=== PATIENT | female | born 1940 | race African-American/Black ===

== ENCOUNTER 2019-07-29 07:30 | Inpatient (IN) | payer MEDICARE, BC ==
[2019-07-22 11:55] LABS: ALBUMIN 3.6 G/DL (3.4-5.0); ALKALINE PHOSPHATASE 93 IU/L (46-116); BLOOD UREA NITROGEN 15 MG/DL (7-18); BUN/CREATININE RATIO 16.7 (6.6-38.0); CALCIUM 9.1 MG/DL (8.5-10.1); CHLORIDE 106 MMOL/L (99-107); PRE OP ALT 16 U/L (30-65); PRE OP ANION GAP 8 (8-16); PRE OP AST 24 U/L (10-37); PRE OP BILIRUB, TOTAL 0.3 MG/DL (0.0-1.0); PRE OP GLUCOSE 86 MG/DL (70-104); PRE OP SODIUM 142 MMOL/L (135-145); TOTAL CARBON DIOXIDE 28.2 MMOL/L (24-32); TOTAL PROTEIN 7.1 G/DL (6.4-8.2); eGFR 73 ML/MIN
[2019-07-22 11:58] LABS: BASOPHILS # (AUTO) 0.1 X10'3 (0-0.2); BASOPHILS % (AUTO) 1.3 % (0-1); EOSINOPHILS # (AUTO) 0.1 X10'3 (0-0.9); EOSINOPHILS % (AUTO) 1.9 % (0-6); LYMPHOCYTES # (AUTO) 1.3 X10'3 (1.1-4.8); LYMPHOCYTES % (AUTO) 31.2 % (21-51); MEAN CORPUSCULAR HEMOGLOBIN 31.2 PG (27.0-31.0); MEAN CORPUSCULAR HGB CONC 33.8 g/dL (33.0-36.5); MEAN PLATELET VOLUME 7.2 FL (7.4-10.4); MONOCYTES # (AUTO) 0.3 X10'3 (0-0.9); MONOCYTES % (AUTO) 7.8 % (2-12); NEUTROPHILS # (AUTO) 2.4 X10'3 (1.8-7.7); NEUTROPHILS % (AUTO) 57.8 % (42-75); PRE OP HEMATOCRIT 35.6 % (35.0-45.0); PRE OP PLATELET COUNT 413 X10'3 (140-440); RED BLOOD COUNT 3.86 X10'6 (4.20-5.60); RED CELL DISTRIBUTION WIDTH 13.5 % (11.5-14.5)
[~2019-07-29] VITALS: Ht 162.6 cm; Wt 69.4 kg
[2019-07-29] VITALS (28 sets, daily range): BP systolic 122–150; BP diastolic 44–81
[2019-07-29] MEDS: potassium cl 20mEq in 1/2 NS 1,000 ML IV SCH ×3 (06:47→22:47)
[~2019-07-29 07:30] MED LIST: ACET-812 PO; DUTA0.5C16 PO; ENAL20TA PO; GABA-532 PO; HYDROcodone/acetaminophen 10/325mg tab PO PRN; HYDROmorphone 1 mg/ml syringe IV PRN; HYDROmorphone inj. 0.5 MG/0.5 ML DISP.SYRIN IV PRN; MELO-100 PO; MULT-271 PO; NIFE-58 PO; TRAM50TA2 PO; VANCOMYCIN INJ 1000 MG in NORMAL SALINE 250ml IV.SOLN IV ONE; acetaminophen 325mg tablet PO ONE; acetaminophen 325mg tablet PO PRN; bisacodyl 10mg suppository rectal RC PRN; cefazolin/dext.iso 2gm/100ml 100 ML IV ONE; celeCOXIB 100mg capsule PO ONE; diphenhydrAMINE 25mg capsule PO PRN; famotidine 20mg tablet PO ONE; gabapentin 300mg capsule PO ONE; magnesium hydroxide 30ml (MOM) UD suspension PO PRN; metoclopramide 5 mg/ml inj IV ONE; oxyCODONE SR 10mg (sust. release) tab -2 tabs (20mg) PO ONE; ringers solution, lacted 1,000 ML IV SCH; tranexamic acid inj. 1,000 MG in normal saline 100 ML IV ONE
[2019-07-29] MEDS ORDERED: vancomycin/NS 1 GM ADD-VANTAGE 250 ML IV SCH ×2 (08:00→21:00)
[2019-07-29] MEDS ORDERED: ceFAZolin 1GM/D5W- ADD-VANTAGE 50 ML IV SCH (08:00)
[2019-07-29] MEDS: ascorbic acid 500mg tablet PO SCH ×2 (08:00→21:39)
[2019-07-29] MEDS: multivitamins, therapeutics tablet PO SCH (08:00)
[2019-07-29] MEDS: gabapentin 300mg capsule PO SCH ×2 (08:00→21:39)
[2019-07-29] MEDS: NIFEdipine XL 30mg tablet PO SCH (08:00)
[2019-07-29] MEDS: dutasteride 0.5 MG capsule PO SCH (08:00)
[2019-07-29] MEDS: aspirin 325mg tablet PO SCH (08:30)
[2019-07-29] MEDS ORDERED: ringers solution, lacted 1,000 ML IV SCH (10:56)
[2019-07-29] MEDS ORDERED: ketorolac trometh. 30mg/ml inj. ONE ×2 (10:57→11:10)
[2019-07-29] MEDS ORDERED: ROPIVAcaine 0.5% (5mg/ml) 30ml vial ONE ×2 (10:58→11:10)
[2019-07-29] MEDS ORDERED: vancomycin 1,000mg inj ONE ×2 (10:58→11:10)
[2019-07-29] MEDS ORDERED: cloNIDine hcl/PF 100mcg/ml inj ONE ×2 (10:58→11:10)
[2019-07-29] MEDS ORDERED: epiNEPHrine 1 mg/ml inj ONE ×2 (10:58→11:10)
[2019-07-29] MEDS ORDERED: tetracaine 1% (10mg/ml) pres. free inj. ONE (10:59)
[2019-07-29] MEDS ORDERED: hydrALAZINE 20mg/ml inj. IV PRN (11:00)
[2019-07-29] MEDS ORDERED: labetalol 20mg/4ml (5mg/ml) syringe IV PRN (11:00)
[2019-07-29] MEDS ORDERED: fentaNYL/PF 50MCG/1 ML 2ML syringe IV PRN ×2 (11:00)
[2019-07-29] MEDS ORDERED: morphine 4 MG/ML inj SYRINge IV PRN ×2 (11:00)
[2019-07-29] MEDS ORDERED: ondansetron/PF 4mg/2ml inj IV PRN (11:00)
[2019-07-29] MEDS ORDERED: fentaNYL/PF 50MCG/1 ML 2ML syringe ONE (12:34)
[2019-07-29] MEDS ORDERED: MIDAZolam 5mg/5ml vial ONE (12:34)
--- NOTE | 2019-07-29 14:03 | NUR ---
Received from OR via BED, accompanied by Anesthesiologist DR LIN and report given by Anesthesiologist. PT DROWSY, DENIES PAIN, RIGHT HIP W/GAUZE THONG CDI, LEG BRACE IN PLACE, LESVIA DRAIN W/GREEN LIGHT ILLUMINATION, GARCIA CATHETER TO GRAVITY DRAINAGE W/YELLOW URINE IN TUBING. Addendum: 07/29/19 at 1507 by Cinthya Devine RN Amended: Links added.
--- NOTE | 2019-07-29 16:53 | NUR ---
Report called to receiving nurse. Transferred via BED, 1 BAG AND 1 DUFFLE BAG OF Belongings SENT TO ROOM 4011B W/PT, BLL, CALL LIGHT GIVEN, SIDE RAILS UP X 2, PT ATTACHED TO VS MACHINE, RECEIVING NOTIFIED OF PTS ARRIVAL. Special Issues communicated to receiving nurse. YES. Addendum: 07/29/19 at 1712 by Cinthya Devine RN Amended: Links added.
[2019-07-29] MEDS ORDERED: tranexamic acid inj. 700 MG in normal saline 100ml IV soln 100 ML IV ONE (17:00)
--- NOTE | 2019-07-29 19:06 | NUR ---
CAN YOU RETIME THE VANCOMYCIN, PLEASE? PT DIDNT COME BACK FROM SURGERY TIL 1730.
--- NOTE | 2019-07-29 19:55 | NUR ---
i can't pull out vanco for tonight dose. i'm not sure its pharmacy mix or stocked. thank you.
[2019-07-29] MEDS: ceFAZolin 1GM/D5W- ADD-VANTAGE 50 ML IV SCH (20:03)
[2019-07-29] MEDS: ondansetron/PF 4mg/2ml inj IV PRN (20:07)
[2019-07-29] MEDS ORDERED: sennosides 8.6mg tablet PO SCH (21:00)
[2019-07-30] MEDS: HYDROcodone/acetaminophen 10/325mg tab PO PRN ×4 (00:19→15:37)
[2019-07-30 02:00] VITALS: BP 115/44
[2019-07-30] MEDS: ceFAZolin 1GM/D5W- ADD-VANTAGE 50 ML IV SCH (03:09)
[2019-07-30 06:00] VITALS: BP 120/54
[2019-07-30 06:07] LABS: BASOPHILS % (AUTO) 0.7 % (0-1); EOSINOPHILS # (AUTO) 0.1 X10'3 (0-0.9); EOSINOPHILS % (AUTO) 1.7 % (0-6); HEMATOCRIT 32.2 % (35.0-45.0); HEMOGLOBIN 10.9 g/dl (12.0-16.0); LYMPHOCYTES % (AUTO) 19.9 % (21-51); MEAN CORPUSCULAR HEMOGLOBIN 31.3 PG (27.0-31.0); MEAN CORPUSCULAR HGB CONC 33.8 g/dL (33.0-36.5); MEAN CORPUSCULAR VOLUME 92.4 FL (78-98); MONOCYTES # (AUTO) 0.3 X10'3 (0-0.9); MONOCYTES % (AUTO) 6.6 % (2-12); NEUTROPHILS # (AUTO) 3.5 X10'3 (1.8-7.7); NEUTROPHILS % (AUTO) 71.1 % (42-75); PLATELET COUNT 338 X10'3 (140-440); RED BLOOD COUNT 3.48 X10'6 (4.20-5.60); RED CELL DISTRIBUTION WIDTH 13.4 % (11.5-14.5); WHITE BLOOD COUNT 4.9 X10'3 (4.5-11.0)
[2019-07-30 06:18] LABS: ANION GAP 6 (8-16); CHLORIDE 107 MMOL/L (99-107); SODIUM 140 MMOL/L (135-145)
--- NOTE | 2019-07-30 06:30 | NUR ---
Problems reprioritized. Patient report given, questions answered & plan of care reviewed with SAM BANDA.
[2019-07-30] MEDS: ondansetron/PF 4mg/2ml inj IV PRN (07:30)
[2019-07-30] MEDS: potassium cl 20mEq in 1/2 NS 1,000 ML IV SCH ×2 (07:31→14:47)
[2019-07-30] MEDS ORDERED: ASPI-1 PO (07:46)
[2019-07-30] MEDS ORDERED: lisinopril 20mg tablet PO SCH (08:00)
[2019-07-30] MEDS: dutasteride 0.5 MG capsule PO SCH (08:00)
[2019-07-30] MEDS: aspirin 325mg tablet PO SCH (09:19)
[2019-07-30] MEDS: gabapentin 300mg capsule PO SCH (09:20)
[2019-07-30] MEDS: NIFEdipine XL 30mg tablet PO SCH (09:25)
[2019-07-30] MEDS: multivitamins, therapeutics tablet PO SCH (09:25)
[2019-07-30 10:00] VITALS: BP 124/50
[2019-07-30 14:00] VITALS: BP 106/44
--- NOTE | 2019-07-30 16:08 | NUR ---
Joint Replacement Consult: Pt seen by RAFAL for written/verbal high protein ed w/ RD contact information provided. Addendum: 07/30/19 at [address] Amended: Links added.
== END 2019-07-30 16:00 | disposition home or self-care (01) | DRG 470 ==
LOC: EDSTATUS 07:30 → PAS IN 10:15 → EDSTATUS 13:30 → ORTHO 4S 16:55
PROVIDERS: ADMIT Orthopaedic Surgery; ATTEND Orthopaedic Surgery
PROC: 0SR906Z Replacement of Right Hip Joint with Oxidized Zirconium on Polyethylene Synthetic Substitute, Open Approach (ICD-10-PCS; principal; 2019-07-29 12:28)
DX: M16.11 Unilateral primary osteoarthritis, right hip (principal); D62 Acute posthemorrhagic anemia; I73.00 Raynaud's syndrome without gangrene; I10 Essential (primary) hypertension
CPT/HCPCS: 36415; 71046; 72170; 80051; 80053; 82948; 85025; 86885; 86900; 86901; 87081; 97162; 97530; A4615; A7000; C1758; C1776; G0378; J0171; J0690; J0735; J1885; J2250; J2405; J2765; J2795; J3010; J3370; J3480; J7120